=== PATIENT | female | born 1995 | race Two or more races ===

== ENCOUNTER 2024-09-19 00:19 | Outpatient (CLI) | payer OTHER ==
[~2024-09-19] VITALS: Ht 160 cm; Wt 75.5 kg
[2024-09-19 00:39] VITALS: BP 130/78
[2024-09-19 00:53] VITALS: BP 119/71
== END 2024-09-19 01:59 | disposition home or self-care (01) ==
LOC: M LDO 00:19 → EDBD 00:19 → M LDO 01:59
PROVIDERS: ATTEND Obstetrics & Gynecology
DX: O47.03 False labor before 37 completed weeks of gestation, third trimester (principal); O26.893 Other specified pregnancy related conditions, third trimester; R51.9 Headache, unspecified; Z3A.36 36 weeks gestation of pregnancy
CPT/HCPCS: 59025; G0463

== ENCOUNTER → 2024-09-28 | Outpatient (CLI) | payer OTHER ==
[2024-09-28 15:36] LABS: HEMATOCRIT 36.4 % (36.0-47.0); HEMOGLOBIN 11.5 g/dl (12.0-15.5); MEAN CORPUSCULAR HGB CONC 31.6 g/dl (32.0-36.5); MEAN CORPUSCULAR VOLUME 85.4 fl (80.0-96.0); PLATELET COUNT, AUTOMATED 235 10^3/uL (150-450); RED BLOOD COUNT 4.26 10^6/uL (4.00-5.40); WHITE BLOOD COUNT 7.3 10^3/uL (4.0-10.0)
[2024-09-28 16:08] LABS: PERCENT SATURATION 76.8 % (13.2-45.0)
[2024-09-28 16:10] LABS: FERRITIN 23.7 NG/ML (7.3-270.7)
== END ==
LOC: M PLALAB 12:09
PROVIDERS: ATTEND Nurse Practitioner Family
DX: O99.013 Anemia complicating pregnancy, third trimester (principal); Z3A.00 Weeks of gestation of pregnancy not specified

== ENCOUNTER → 2024-09-30 | Outpatient (CLI) | payer OTHER | LOC: M RAD 09:48 | PROVIDERS: ATTEND Nurse Practitioner Family | DX: O24.419 Gestational diabetes mellitus in pregnancy, unspecified control (principal); Z3A.38 38 weeks gestation of pregnancy ==

== ENCOUNTER 2024-10-11 19:30 | Inpatient (IN) | payer OTHER ==
[~2024-10-11] VITALS: Ht 160 cm; Wt 77.7 kg
[2024-10-11 20:39] LABS: HEMATOCRIT 34.8 % (36.0-47.0); HEMOGLOBIN 11.5 g/dl (12.0-15.5); MEAN CORPUSCULAR HEMOGLOBIN 27.6 pg (27.0-33.0); MEAN CORPUSCULAR VOLUME 83.5 fl (80.0-96.0); PLATELET COUNT, AUTOMATED 236 10^3/uL (150-450); RED BLOOD COUNT 4.17 10^6/uL (4.00-5.40); WHITE BLOOD COUNT 8.1 10^3/uL (4.0-10.0)
[2024-10-11] MEDS ORDERED: CARBOPROST TROMETHAMINE 250 MCG/ML AMP IM PRN (21:05)
[2024-10-11] MEDS ORDERED: METHYLERGONOVINE MALEATE 0.2MG/ML 1ML VIAL IM PRN (21:05)
[2024-10-11] MEDS ORDERED: TRANEXAMIC ACID INJection 1,000 MG in NS 100 ML IV PRN (21:05)
[2024-10-11 21:34] LABS: HIV 1&2 SCREEN NEGATIVE (NEGATIVE)
[2024-10-11 21:41] LABS: HEPATITIS C VIRUS ABY INDEX < 0.02 INDEX (<0.8)
[2024-10-11] MEDS: OXYTOCIN DRIP 30 UNITS in IV 1 EA IV SCH (21:56)
[2024-10-11] MEDS: LACTATED RINGER'S 1000 ML IV STA (21:56)
[2024-10-11 21:59] VITALS: BP 136/81
[2024-10-11 22:30] VITALS: BP 119/66
[2024-10-11 23:00] VITALS: BP 120/65
[2024-10-12] VITALS (55 sets, daily range): BP systolic 81–181; BP diastolic 40–92
[2024-10-12] MEDS ORDERED: UNRESOLVED CLARIFICATION ENTRY XX SCH (00:01)
[2024-10-12] MEDS: LR 1,000 ML IV SCH (08:20)
[2024-10-12] MEDS ORDERED: FENTANYL 2MCG/ML ROPIVACAINE 0.2% IN 0.9% NACL 100ML IVBAG As Ordered ONE (09:04)
[2024-10-12] MEDS ORDERED: EPIDURAL/PCA KEYS XX PRN (09:05)
[2024-10-12] MEDS ORDERED: ONDANSETRON 4MG 2ML VIAL IV PRN (09:05)
[2024-10-12] MEDS ORDERED: diphenhydrAMINE 50MG/ML VIAL IV PRN (09:05)
[2024-10-12] MEDS ORDERED: LR 500 ML IV PRN (09:05)
[2024-10-12] MEDS ORDERED: NALOXONE INJ 0.4MG/1ML VIAL IV PRN (09:05)
[2024-10-12] MEDS: FENTANYL/ROPIVACAINE/NACL BAG 100 ML EPIDURAL SCH (09:35)
[2024-10-12] MEDS: ePHEDrine SULFATE 25 MG/5 ML(5MG/ML) SYRINGE IVP PRN (09:40)
[2024-10-12] MEDS ORDERED: ACETAMINOPHEN 500 MG TAB As Ordered ONE (23:58)
[2024-10-13] MEDS: ACETAMINOPHEN 500 MG TAB PO ONE
[2024-10-13 00:12] VITALS: BP 125/77
[2024-10-13 00:27] VITALS: BP 133/83
[2024-10-13 00:42] VITALS: BP 137/87
[2024-10-13 00:57] VITALS: BP 138/83
[2024-10-13] MEDS ORDERED: ACETAMINOPHEN 325 MG TAB PO PRN (01:15)
[2024-10-13] MEDS ORDERED: MOM 30ML SUSPENSION UDC PO PRN (01:15)
[2024-10-13] MEDS ORDERED: DOCUSATE SODIUM 100MG CAPSULE PO PRN (01:15)
[2024-10-13] MEDS ORDERED: ANUSOL HC CREAM 30GM TOP PRN (01:15)
[2024-10-13] MEDS ORDERED: RHOGAM 300MCG (1500IU) INJ IM SCH (01:15)
[2024-10-13] MEDS: AMPICILLIN SOD/SULBACTAM SOD 3 GM in SODIUM CHLORIDE 0.9% 100ML ADD 100 ML IV ONE (01:30)
[2024-10-13] MEDS: IBUPROFEN 800 MG TAB PO PRN (03:18)
[2024-10-13] MEDS: DIBUCAINE 1% OINTMENT 30GM TOP PRN (03:21)
[2024-10-13 03:26] VITALS: BP 115/57; O2SAT 100
[2024-10-13] MEDS: PRENATAL VITAMINS CHEWABLE TABLET PO SCH (08:07)
[2024-10-13 08:43] LABS: HEMATOCRIT 27.8 % (36.0-47.0); MEAN CORPUSCULAR HEMOGLOBIN 27.8 pg (27.0-33.0); MEAN CORPUSCULAR HGB CONC 33.8 g/dl (32.0-36.5); MEAN CORPUSCULAR VOLUME 82.2 fl (80.0-96.0); PLATELET COUNT, AUTOMATED 169 10^3/uL (150-450); RED BLOOD COUNT 3.38 10^6/uL (4.00-5.40); WHITE BLOOD COUNT 15.2 10^3/uL (4.0-10.0)
[2024-10-13 08:52] LABS: HEMOGLOBIN 9.4 g/dl (12.0-15.5)
[2024-10-13] MEDS: DOCUSATE SODIUM 100MG CAPSULE PO SCH (12:01)
[2024-10-13] MEDS: IBUPROFEN 600MG TAB PO PRN (14:19)
[2024-10-13 18:41] VITALS: BP 132/72; O2SAT 100
[2024-10-13] MEDS: ACETAMINOPHEN 500 MG TAB PO PRN (20:21)
[2024-10-14 06:05] VITALS: BP 114/61; O2SAT 99
[2024-10-14 13:01] LABS: HEMATOCRIT 26.2 % (36.0-47.0); HEMOGLOBIN 8.7 g/dl (12.0-15.5); MEAN CORPUSCULAR HEMOGLOBIN 27.6 pg (27.0-33.0); MEAN CORPUSCULAR HGB CONC 33.2 g/dl (32.0-36.5); MEAN CORPUSCULAR VOLUME 83.2 fl (80.0-96.0); PLATELET COUNT, AUTOMATED 199 10^3/uL (150-450); RED BLOOD COUNT 3.15 10^6/uL (4.00-5.40); WHITE BLOOD COUNT 13.2 10^3/uL (4.0-10.0)
[2024-10-14] MEDS: MEASLES,MUMPS,RUBELLA VACCINE INJ (MMR-II) SC.IMMUN ONE (14:38)
== END 2024-10-14 14:20 | disposition home or self-care (01) | DRG 805 ==
LOC: M LDI 19:30 → M OBS 10-13 02:50
PROVIDERS: ADMIT Obstetrics & Gynecology; ATTEND Advanced Practice Midwife
PROC: 3E033VJ Introduction of Other Hormone into Peripheral Vein, Percutaneous Approach (ICD-10-PCS; 2024-10-11)
PROC: 10D17Z9 Manual Extraction of Products of Conception, Retained, Via Natural or Artificial Opening (ICD-10-PCS; principal; 2024-10-12)
PROC: 10E0XZZ Delivery of Products of Conception, External Approach (ICD-10-PCS; 2024-10-12)
PROC: 0HQ9XZZ Repair Perineum Skin, External Approach (ICD-10-PCS; 2024-10-12)
PROC: 10907ZC Drainage of Amniotic Fluid, Therapeutic from Products of Conception, Via Natural or Artificial Opening (ICD-10-PCS; 2024-10-12)
DX: O24.420 Gestational diabetes mellitus in childbirth, diet controlled (principal); Z37.0 Single live birth; O41.1230 Chorioamnionitis, third trimester, not applicable or unspecified; O72.2 Delayed and secondary postpartum hemorrhage; Z3A.40 40 weeks gestation of pregnancy; O48.0 Post-term pregnancy; O70.0 First degree perineal laceration during delivery